=== PATIENT | female | born 1980 | race Hispanic/Latino ===

== ENCOUNTER 2017-06-29 12:13 | Emergency (ER) | payer SELFPAY ==
[2017-06-29 13:02] LABS: Bilirubin Negative (Negative); Blood, Urine Trace (Negative); Glucose, Urine (Dipstick) Negative (Negative); Ketone, Urine Negative (Negative); Nitrite Negative (Negative); Protein, Urine (Dipstick) 30 mg/dL (Neg-Trace); Urobilinogen 0.2 mg/dL (0.2-1.0)
[2017-06-29 13:04] LABS: #Lymphocytes 1.6 thou/uL (1.20-3.40); #Monocytes 0.3 thou/uL (0.11-0.59); %Basophils 0.1 % (0.0-1.0); %Monocytes 4.2 % (0.0-10.0); Hematocrit 41.8 % (36.0-47.0); Mean Platelet Volume 6.8 fL (7.4-10.4); Red Blood Cell (RBC) Count 4.58 mill/uL (4.20-5.40); White Blood Cell (WBC) Count 7.9 thou/uL (4.8-10.8)
[2017-06-29 13:04] LABS: Bacteria/HPF Rare-Few HPF (None Seen); Hyaline Casts/LPF 4-6 HYALINE CAST LPF (0-3 Hyaline)
[2017-06-29] MEDS ORDERED: Ketorolac Tromethamine 30 MG/ML VIAL ONE (13:12)
[2017-06-29 13:49] LABS: ALT (SGPT) 30 U/L (8-55); AST (SGOT) 26 U/L (5-34); Alkaline Phosphatase 83 U/L (40-150); Anion Gap 11 mmol/L (10-20); BUN (Urea Nitrogen) 9 mg/dL (7.0-18.7); Calc. Creatinine Clearance 0 mL/min (70-130); Calcium 9.6 mg/dL (7.8-10.44); Carbon Dioxide 23 mmol/L (22-29); Chloride 105 mmol/L (98-107); Estimated GFR-MDRD Greater than 90; Globulin 3.5 g/dL (2.4-3.5); Lipase 8 U/L (8-78); Protein, Total 7.9 g/dL (6.0-8.3)
--- NOTE | 2017-06-29 15:36 | CT ---
CT ABDOMEN NONCONTRAST CT PELVIS NONCONTRAST: (urolithiasis protocol) DATE: 06/29/17 HISTORY: 36-year-old female with severe lower abdominal pain, nausea, and emesis. COMPARISON: 08/05/16. TECHNIQUE: IV injection of iodinated contrast media: none Oral contrast media: none FINDINGS: Other than for urolithiasis, the lack of IV and oral contrast limits the evaluation. The previously demonstrated calculus at the right ureterovesical junction causing obstruction, with a ssociated right hydronephrosis, has resolved. Currently, there are no renal, ureteral, or bladder tessy culi. There is no hydronephrosis. The appendix is fluid-filled, and mildly dilated to 8 mm caliber. H owever, there is no periappendiceal fat stranding to indicate edema. There is a small amount of gas a t the distal tip of the appendix. No small bowel dilation. No signs of acute colonic diverticulitis. No ascites or pneumoperitoneum. Diffusely low hepatic attenuation consistent with fatty liver. Within the limitations of a noncontrast scan, no gross abnormality is identified involving the pancreas, ab dominal aorta, adrenals, kidneys, or spleen. Lung bases are grossly clear. Normal bladder. IMPRESSION: 1. Hepatic steatosis. 2. No urolithiasis or obstructive uropathy. 3. Although the appendix is mildly dilated to 8 mm, and is fluid-filled, there is no periappendiceal fat stranding, and therefore this is equivocal acute appendicitis. If patient's symptoms are consist ent with acute appendicitis, then follow-up CT of abdomen and pelvis is recommended in 12-24 hours. 4. Hepatic steatosis. THELMA [facility] POS: [facility]
== END 2017-06-29 13:32 | disposition home or self-care (01) ==
LOC: ERS 12:13
DX: J11.1 Influenza due to unidentified influenza virus with other respiratory manifestations (principal)
CPT/HCPCS: 74176; 80053; 81003; 81015; 81025; 83690; 85025; 96361; 96374; J1885

== ENCOUNTER 2017-06-30 11:52 | Emergency (ER) | payer SELFPAY ==
[2017-06-30 12:55] LABS: #Basophils 0.1 thou/uL (0.0-0.2); #Lymphocytes 1.6 thou/uL (1.20-3.40); #Monocytes 0.3 thou/uL (0.11-0.59); #Neutrophils 3.1 thou/uL (1.40-6.50); %Basophils 2.4 % (0.0-1.0); %Eosinophils 0.5 % (0.0-10.0); %Lymphocytes 30.5 % (21.0-51.0); %Monocytes 6.6 % (0.0-10.0); Hematocrit 39.8 % (36.0-47.0); Mean Platelet Volume 6.8 fL (7.4-10.4); Red Blood Cell (RBC) Count 4.31 mill/uL (4.20-5.40); White Blood Cell (WBC) Count 5.2 thou/uL (4.8-10.8)
[2017-06-30 13:18] LABS: ALT (SGPT) 25 U/L (8-55); AST (SGOT) 18 U/L (5-34); Alkaline Phosphatase 68 U/L (40-150); Anion Gap 11 mmol/L (10-20); BUN (Urea Nitrogen) 5 mg/dL (7.0-18.7); Bilirubin, Total 0.5 mg/dL (0.2-1.2); Calc. Creatinine Clearance 0 mL/min (70-130); Calcium 8.8 mg/dL (7.8-10.44); Carbon Dioxide 23 mmol/L (22-29); Chloride 106 mmol/L (98-107); Estimated GFR-MDRD Greater than 90; Lipase 13 U/L (8-78); Protein, Total 6.8 g/dL (6.0-8.3)
[2017-06-30 13:24] LABS: Bilirubin Negative (Negative); Blood, Urine Negative (Negative); Glucose, Urine (Dipstick) Negative (Negative); Ketone, Urine Negative (Negative); Nitrite Negative (Negative); Protein, Urine (Dipstick) Negative (Neg-Trace); Urobilinogen 0.2 mg/dL (0.2-1.0)
[2017-06-30 13:28] LABS: Bacteria/HPF 1+ HPF (None Seen); Hyaline Casts/LPF 0-3 HYALINE CAST LPF (0-3 Hyaline); RBC/HPF 0-3 HPF (0-3)
[2017-06-30] MEDS ORDERED: Potassium Chloride 20 MEQ TAB ONE (13:52)
--- NOTE | 2017-06-30 13:58 | ULT ---
TRANSABDOMINAL AND TRANSVAGINAL PELVIC ULTRASOUND: Date: 06/30/17 INDICATION: Right lower quadrant and pelvic pain. TECHNIQUE: Shepherd scale, color Doppler, and vascular duplex with spectral analysis was performed of the pelvis via a transabdominal and transvaginal approach. FINDINGS: Uterus measures 5.1 x 3.0 x 5.2 cm. Endometrial stripe measures 4.2 mm. The right ovary measures 3.0 x 2.3 x 2.0 cm. The left ovary measures 3.9 x 1.7 x 2.5 cm. Minimal free fluid is seen in the cul-de-sac. IMPRESSION: No acute sonographic abnormality within the pelvis. POS: [facility]
== END 2017-06-30 14:36 | disposition home or self-care (01) ==
LOC: ERS 11:52
DX: N39.0 Urinary tract infection, site not specified (principal)
CPT/HCPCS: 36415; 76856; 80053; 81003; 81015; 81025; 83690; 85025; 87480; 87491; 87510; 87591; 87660